=== PATIENT | female | born 1970 | race Caucasian/White ===

== ENCOUNTER 2024-08-31 12:35 | Observation (INO) ==
[~2024-08-31 12:35] MED LIST: ULTANE GAS IN ONE
--- NOTE | 2024-08-31 13:11 | ED.ABDFE ---
HPI Time Seen Time Seen by Provider: 08/31/24 13:10 PCP Primary Care Physician: Parris ELIZABETH Comment HPI Comment: Patient was recently seen in the emergency room due to abdominal pain. Patient was diagnosed with gallstones and states that she followed up with Dr. Spencer, the surgeon, and that they were planning possible surgery to remove her gallbladder and biopsy some lesions on her liver. Patient states the pain is in the right upper quadrant at this time and that it has worsened. Patient states she is also been having some nausea. She did not take any of her meds today. Patient states that she had coffee with creamer this morning around 9 in the morning and had some peppermints right before coming into the ER. Complaint Chief Complaint:: Patient states that she was here at this ER due to the same symptoms and was diagnosed with gallstones. She states that she has been having right lower quad abdominal pain still and has thrown up daily. She states that she tried to follow up with Dr. SPENCER and states that he was not able to schedule her at this time. Source History Provided: Patient Mode of arrival Mode of Arrival: Ambulatory Timing Onset of Chief Complaint: 08/12/24 PMH PMH Past Medical History: Yes Past Medical History: Diabetes, Dyslipidemia and Hypertension Surgical History: [employer] Surgery and Hysterectomy Family History History of Family Medical Conditions: Yes Family Medical History: Diabetes Mellitus, Cancer and Hypertension Social History Does patient currently use any type of tobacco product: Yes Have you used tobacco products in the last 12 months: Yes Type of Tobacco Use: Cigarettes Does any household member use tobacco: No Alcohol Use: None Do you use any recreational Drugs:: No Lives With: Family Lives Where: Home Infectious screening In the last 2 months have you had wt loss of >10#?: NO Have you had fever, night sweats or hemotysis?: No Have you traveled outside the country in the last 6 months?: No Isolation: Standard ROS Review of Systems Constitutional: No Symptoms Reported; negative Fever Eyes: No Symptoms Reported ENTM: No Symptoms Reported Respiratoy: No Symptoms Reported Cardiovascular: No Symptoms Reported Gastrointestinal/Abdominal: See HPI, Abdominal Pain and Nausea Genitourinary: No Symptoms Reported Neurological: No Symptoms Reported Musculoskeletal: No Symptoms Reported Integumentary: No Symptoms Reported Hematologic/Lymphatic: No Symptoms Reported Endocrine: No Symptoms Reported Psychiatric: No Symptoms Reported All Other Systems: Reviewed and Negative PE Vital Signs Vitals: Vital Signs Temperature 98.0 F Pulse Rate 91 Respiratory Rate 19 Respiratory Rate 18 Blood Pressure 187/80 O2 Sat by Pulse Oximetry 98 General Limitations: No Limitations and Language Barrier General Appearance: Alert and In No Apparent Distress Head Head Exam: Normal Inspection Eyes Eye exam: Normal Appearance ENT ENT Exam: Normal Exam Neck Neck Exam: Normal Inspection Chest Chest Inspection: Normal Inspection Respiratory Respiratory Exam: Normal Lung Sounds Bilat Cardiovascular Cardiovascular Exam: Regular Rate and Normal Rhythm Abdominal Exam Abdominal Exam: Normal Bowel Sounds, Soft and Tenderness (Right lower quadrant and epigastric mildly tender. No rebound.); negative Distention, Guarding, Rebound or Rigidity Abdominal Tenderness: RUQ Rectal Rectal Exam: Deferred Back Back Exam: Normal Inspection Extremeties Extremities Exam: Normal Inspection Neurologic Neurological Exam: Alert and Oriented X3 Psychiatric Psychiatric Exam: Normal Affect and Normal Mood Skin Skin Exam: Warm, Dry and Intact COURSE Consultation Called: 14:01 Consultation Comments: Discussed case with Dr. Childs. Dr. Spencer, the surgeon, who has seen Ms. Hogan before and requested that we admit her under Dr. Childs and consult him. Patient refused CT scan. Labs are still pending. However we discussed the case with Dr. Childs and he is agreeable to admit the patient. Patient is stable at this time. [facility] Labs Reviewed 08/31/24 13:13 08/31/24 13:13 Laboratory: WBC 12.0 X10^3/uL (3.6-10.0) H 08/31/24 13:13 RBC 5.66 X10^6/uL (3.5-5.4) H 08/31/24 13:13 Hgb 16.3 g/dL (12.0-16.0) H 08/31/24 13:13 Hct 47.4 % (36.0-47.0) H 08/31/24 13:13 MCV 83.8 fL (80.0-100.0) 08/31/24 13:13 MCH 28.7 pg (27.0-34.0) 08/31/24 13:13 MCHC 34.3 g/dL (33.0-35.0) 08/31/24 13:13 RDW 13.5 % (11.6-16.5) 08/31/24 13:13 Plt Count 259 X10^3/uL (150.0-450.0) 08/31/24 13:13 MPV 8.8 fL (7.4-11.0) 08/31/24 13:13 Neut % (Auto) 63.9 % (42.0-75.0) 08/31/24 13:13 Lymph % (Auto) 28.3 % (21.0-51.0) 08/31/24 13:13 [place] % (Auto) 5.7 % (0.0-13.0) 08/31/24 13:13 Eos % (Auto) 1.1 % (0.9-2.9) 08/31/24 13:13 Baso % (Auto) 1.0 % (0.2-1.0) 08/31/24 13:13 Neut # (Auto) 7.7 x10^3/uL (2.2-4.8) H 08/31/24 13:13 Lymph # (Auto) 3.4 X10^3/uL (1.3-2.9) H 08/31/24 13:13 [place] # (Auto) 0.7 x10^3/uL (0.3-0.8) 08/31/24 13:13 Eos # (Auto) 0.1 x10^3/uL (0.0-0.2) 08/31/24 13:13 Baso # (Auto) 0.1 X10^3/uL (0.0-0.1) 08/31/24 13:13 Absolute Nucleated RBC 0.1 /100WBC 08/31/24 13:13 Sodium 133 mmol/L (136-145) L 08/31/24 13:13 Corrected Sodium 135 mmol/L (136-145) L 08/31/24 13:13 Potassium 3.9 mmol/L (3.5-5.1) 08/31/24 13:13 Chloride 98 mmol/L (98-107) 08/31/24 13:13 Carbon Dioxide 31.4 mmol/L (21-32) 08/31/24 13:13 BUN 6 mg/dL (7-18) L 08/31/24 13:13 Creatinine 0.79 mg/dL (0.55-1.02) 08/31/24 13:13 Est GFR (MDRD) Af Amer > 60 (>60) 08/31/24 13:13 Est GFR (MDRD) Non-Af > 60 (>60) 08/31/24 13:13 Glucose 197 mg/dL (65-99) H 08/31/24 13:13 Calcium 8.9 mg/dL (8.5-10.1) 08/31/24 13:13 Corrected Calcium TNP 08/31/24 13:13 Total Bilirubin 0.50 mg/dL (0.2-1.0) 08/31/24 13:13 AST 36 Units/L (15-37) 08/31/24 13:13 ALT 28 Units/L (12-78) 08/31/24 13:13 Alkaline Phosphatase 185 Units/L (46-116) H 08/31/24 13:13 C-Reactive Protein 13.00 mg/L (0-3.0) H 08/31/24 13:13 Total Protein 7.8 g/dL (6.4-8.2) 08/31/24 13:13 Albumin 3.4 g/dL (3.4-5.0) 08/31/24 13:13 Globulin 4.4 g/dL (2.5-4.5) 08/31/24 13:13 Albumin/Globulin Ratio 0.8 Ratio (1.1-2.1) L 08/31/24 13:13 Opioid Opioid Risk Tool Age (Lamin box if 16-45): No History of Preadolescent Sexual Abuse: No Total: 0 Total Score Risk Category: Low Risk Copyright: Guilherme PATEL predicting aberrant behaviors Discharge Plan Diagnosis Discharge Problem: Abdominal pain Discharge Plan Patient Disposition: 09 ADMITTED INPATIENT Condition: Stable Prescriptions: No Action levocetirizine 5 mg tablet 5 mg PO QDAY Qty: 30 0RF ezetimibe 10 mg tablet 10 mg PO QDAY Health Concerns: Post Hospitalization: new medications and changes needed to prevent readmission or further decline. Pt educated and given instructions on all concerns. Plan of Treatment: Continue with present treatment and follow up plan. Pt is to keep follow up appointment as instructed and take medications as ordered. Orders to Discharge Patient Discharge Orders: Transfer (Routine); Ordered 08/31/24 Ordered By: Reinier Monroy Follow ups/Referrals Follow ups/Referrals: REN HE [Primary Care Provider] - 3 days Instructions Stand Alone Forms: Post Hospital Follow Up Care
[2024-08-31] MEDS: NS 500 ML IV 500 ML IV ONE (13:18)
[2024-08-31] MEDS: ZOFRAN INJ 4 MG VIAL IVP ONE (13:26)
[2024-08-31] MEDS: NORCO 5/325 MG TAB PO ONE (13:28)
[2024-08-31 13:37] LABS: BASOPHILS # (AUTO) 0.1 X10^3/uL (0.0-0.1); EOSINOPHILS # (AUTO) 0.1 x10^3/uL (0.0-0.2); EOSINOPHILS % (AUTO) 1.1 % (0.9-2.9); HEMATOCRIT 47.4 % (36.0-47.0); HEMOGLOBIN 16.3 g/dL (12.0-16.0); LYMPHOCYTES # (AUTO) 3.4 X10^3/uL (1.3-2.9); LYMPHOCYTES % (AUTO) 28.3 % (21.0-51.0); MEAN CORPUSCULAR HEMOGLOBIN 28.7 pg (27.0-34.0); MEAN CORPUSCULAR HGB CONC 34.3 g/dL (33.0-35.0); MEAN CORPUSCULAR VOLUME 83.8 fL (80.0-100.0); MEAN PLATELET VOLUME 8.8 fL (7.4-11.0); MONOCYTES # (AUTO) 0.7 x10^3/uL (0.3-0.8); MONOCYTES % (AUTO) 5.7 % (0.0-13.0); NEUTROPHILS # (AUTO) 7.7 x10^3/uL (2.2-4.8); NEUTROPHILS % (AUTO) 63.9 % (42.0-75.0); PLATELET COUNT 259 X10^3/uL (150.0-450.0); RED BLOOD COUNT 5.66 X10^6/uL (3.5-5.4); RED CELL DISTRIBUTION WIDTH 13.5 % (11.6-16.5)
[2024-08-31 13:58] LABS: ALANINE AMINOTRANSFERASE 28 Units/L (12-78); ALBUMIN 3.4 g/dL (3.4-5.0); ALKALINE PHOSPHATASE 185 Units/L (46-116); ASPARTATE AMINO TRANSFERASE 36 Units/L (15-37); BLOOD UREA NITROGEN 6 mg/dL (7-18); CALCIUM 8.9 mg/dL (8.5-10.1); CARBON DIOXIDE 31.4 mmol/L (21-32); CHLORIDE 98 mmol/L (98-107); COR NA(FOR HYPERGLY) 135 mmol/L (136-145); CREATININE 0.79 mg/dL (0.55-1.02); GLUCOSE 197 mg/dL (65-99); POTASSIUM 3.9 mmol/L (3.5-5.1); SODIUM 133 mmol/L (136-145); TOTAL PROTEIN 7.8 g/dL (6.4-8.2); eGFR NON BLACK RACES > 60 (>60)
[2024-08-31 14:06] LABS: AMYLASE 51 Units/L (25-115); LIPASE 92 Units/L (16-77)
[2024-08-31] MEDS ORDERED: NovoLIN R (or HumuLIN R) SUBCUT PRN (14:55)
[2024-08-31 15:45] VITALS: BMI 22.7
[2024-08-31] MEDS: NS 1,000 ML IV 1,000 ML IV SCH (16:01)
[2024-08-31] MEDS: MAG-OX TAB PO SCH (17:27)
[2024-08-31] MEDS: LEVAQUIN PREMIX IV 500 MG 500 MG/100 ML BAG IV ONE (18:15)
[2024-08-31 18:16] LABS: BILIRUBIN,URINE NEGATIVE (NEGATIVE); BLOOD/HEMOGLOBIN,URINE NEGATIVE (NEGATIVE); GLUCOSE, URINE NEGATIVE (NEGATIVE); KETONES,URINE NEGATIVE (NEGATIVE); LEUKOCYTE ESTERASE ,URINE NEGATIVE (NEGATIVE); NITRITES,URINE NEGATIVE (NEGATIVE); PROTEIN,URINE NEGATIVE (NEGATIVE); UROBILINOGEN,URINE NORMAL (NORMAL)
[2024-08-31 18:23] LABS: APPEARANCE,URINE CLEAR (CLEAR); COLOR,URINE YELLOW (YELLOW)
[2024-08-31] MEDS: ZOFRAN INJ 4 MG VIAL ONE (18:29)
[2024-08-31] MEDS: CONSULT PHARMACY - POTASSIUM & MAGNESIUM XX SCH ×2 (18:29)
[2024-08-31] MEDS: NORCO 5/325 MG TAB ONE (18:30)
[2024-08-31] MEDS: SNACK - Diabetic Appropriate PO SCH (19:05)
[2024-08-31] MEDS: NORCO 5/325 MG TAB PO PRN (20:30)
[2024-09-01] MEDS: HIBICLENS WASH EXT ONE (01:25)
[2024-09-01] MEDS: HIBICLENS WASH ONE (04:01)
[2024-09-01 04:53] LABS: BASOPHILS # (AUTO) 0.1 X10^3/uL (0.0-0.1); BASOPHILS % (AUTO) 0.6 % (0.2-1.0); EOSINOPHILS # (AUTO) 0.1 x10^3/uL (0.0-0.2); EOSINOPHILS % (AUTO) 1.1 % (0.9-2.9); HEMATOCRIT 43.6 % (36.0-47.0); HEMOGLOBIN 14.9 g/dL (12.0-16.0); LYMPHOCYTES # (AUTO) 3.8 X10^3/uL (1.3-2.9); LYMPHOCYTES % (AUTO) 39.2 % (21.0-51.0); MEAN CORPUSCULAR HEMOGLOBIN 28.6 pg (27.0-34.0); MEAN CORPUSCULAR HGB CONC 34.2 g/dL (33.0-35.0); MEAN CORPUSCULAR VOLUME 83.7 fL (80.0-100.0); MEAN PLATELET VOLUME 8.6 fL (7.4-11.0); MONOCYTES # (AUTO) 0.7 x10^3/uL (0.3-0.8); MONOCYTES % (AUTO) 6.9 % (0.0-13.0); NEUTROPHILS % (AUTO) 52.2 % (42.0-75.0); PLATELET COUNT 236 X10^3/uL (150.0-450.0); RED BLOOD COUNT 5.21 X10^6/uL (3.5-5.4); RED CELL DISTRIBUTION WIDTH 13.4 % (11.6-16.5); WHITE BLOOD COUNT 9.6 X10^3/uL (3.6-10.0)
[2024-09-01 05:09] LABS: ALANINE AMINOTRANSFERASE 24 Units/L (12-78); ALBUMIN 2.9 g/dL (3.4-5.0); ALKALINE PHOSPHATASE 162 Units/L (46-116); ASPARTATE AMINO TRANSFERASE 29 Units/L (15-37); BLOOD UREA NITROGEN 3 mg/dL (7-18); CALCIUM 8.7 mg/dL (8.5-10.1); CARBON DIOXIDE 34.1 mmol/L (21-32); CHLORIDE 102 mmol/L (98-107); COR CA(FOR HYPOALB) 9.6 mg/dL (8.5-10.1); COR NA(FOR HYPERGLY) 137 mmol/L (136-145); CREATININE 0.77 mg/dL (0.55-1.02); GLUCOSE 112 mg/dL (65-99); POTASSIUM 4.4 mmol/L (3.5-5.1); SODIUM 137 mmol/L (136-145); eGFR NON BLACK RACES > 60 (>60)
[2024-09-01] MEDS: NOZIN NASAL SANITIZER TP SCH (08:08)
[2024-09-01] MEDS: VERSED ONE (08:13)
[2024-09-01] MEDS: FENTANYL VIAL INJ 100 mcg ONE ×2 (08:13→10:11)
[2024-09-01] MEDS: REGLAN INJ 10 MG VIAL ONE (08:14)
[2024-09-01] MEDS: ZOFRAN INJ 4 MG VIAL ONE (08:14)
[2024-09-01] MEDS: TORADOL 30 MG VIAL ONE (08:14)
[2024-09-01] MEDS: OFIRMEV IV 1000 MG VIAL 1,000 MG/100 ML VIAL IV ONE (08:14)
[2024-09-01] MEDS: ZEMURON 100 MG VIAL ONE (08:14)
[2024-09-01] MEDS: DIPRIVAN VIAL 20 ML ONE (08:14)
[2024-09-01] MEDS: PEPCID 20 MG VIAL ONE (08:14)
[2024-09-01] MEDS: BRIDION ONE (08:14)
[2024-09-01] MEDS: BACTROBAN TOPICAL OINT ONE (09:15)
[2024-09-01] MEDS: NS 100 ML IV 100 ML ONE (09:18)
[2024-09-01] MEDS: NOZIN NASAL SANITIZER TP ONE (09:18)
[2024-09-01] MEDS: ANCEF VIAL 1 GRAM ONE (09:18)
[2024-09-01] MEDS: LR 1,000 ML IV 0 ML IV ONE (09:19)
[2024-09-01] MEDS: NS 1,000 ML IV 1,000 ML ONE (09:19)
[2024-09-01] MEDS: DUONEB 0.5 MG/3 MG (3 mL) NEB ONE (09:22)
[2024-09-01] MEDS ORDERED: MAGNESIUM SULFATE 1 GRAM/100 mL PREMIX 1 G/100 ML BAG IV SCH (09:31)
[2024-09-01] MEDS ORDERED: ZOFRAN INJ 4 MG VIAL IVP PRN (09:36)
[2024-09-01] MEDS ORDERED: DILAUDID INJ IVP PRN (09:36)
[2024-09-01] MEDS ORDERED: REGLAN INJ 10 MG VIAL IVP PRN (09:36)
[2024-09-01] MEDS ORDERED: BARHEMSYS INJ IVP PRN (09:36)
[2024-09-01] MEDS ORDERED: BENADRYL INJ 50 MG VIAL IVP PRN (09:36)
[2024-09-01] MEDS: DILAUDID INJ ONE (10:45)
[2024-09-01] MEDS: NS 1,000 ML IV 1,000 ML with MAGNESIUM SULFATE 50% INJ VIAL 1 G IV SCH (12:14)
[2024-09-01] MEDS: BENADRYL INJ 50 MG VIAL IVP PRN (12:39)
[2024-09-01] MEDS: DILAUDID INJ IVP PRN (12:42)
[2024-09-01] MEDS: NICOTINE PATCH TD SCH (20:12)
[2024-09-02 06:24] LABS: BASOPHILS # (AUTO) 0.1 X10^3/uL (0.0-0.1); BASOPHILS % (AUTO) 0.7 % (0.2-1.0); EOSINOPHILS # (AUTO) 0.1 x10^3/uL (0.0-0.2); EOSINOPHILS % (AUTO) 0.5 % (0.9-2.9); HEMATOCRIT 39.6 % (36.0-47.0); HEMOGLOBIN 13.2 g/dL (12.0-16.0); LYMPHOCYTES # (AUTO) 3.2 X10^3/uL (1.3-2.9); LYMPHOCYTES % (AUTO) 26.8 % (21.0-51.0); MEAN CORPUSCULAR HEMOGLOBIN 28.7 pg (27.0-34.0); MEAN CORPUSCULAR HGB CONC 33.5 g/dL (33.0-35.0); MEAN CORPUSCULAR VOLUME 85.6 fL (80.0-100.0); MEAN PLATELET VOLUME 8.5 fL (7.4-11.0); MONOCYTES # (AUTO) 0.7 x10^3/uL (0.3-0.8); MONOCYTES % (AUTO) 5.9 % (0.0-13.0); NEUTROPHILS # (AUTO) 7.9 x10^3/uL (2.2-4.8); NEUTROPHILS % (AUTO) 66.1 % (42.0-75.0); PLATELET COUNT 199 X10^3/uL (150.0-450.0); RED BLOOD COUNT 4.62 X10^6/uL (3.5-5.4); RED CELL DISTRIBUTION WIDTH 13.2 % (11.6-16.5); WHITE BLOOD COUNT 11.9 X10^3/uL (3.6-10.0)
[2024-09-02 06:37] LABS: ALANINE AMINOTRANSFERASE 40 Units/L (12-78); ALBUMIN 2.7 g/dL (3.4-5.0); ALKALINE PHOSPHATASE 164 Units/L (46-116); ASPARTATE AMINO TRANSFERASE 50 Units/L (15-37); BLOOD UREA NITROGEN 5 mg/dL (7-18); CARBON DIOXIDE 29.8 mmol/L (21-32); CHLORIDE 103 mmol/L (98-107); COR NA(FOR HYPERGLY) 138 mmol/L (136-145); CREATININE 0.82 mg/dL (0.55-1.02); GLUCOSE 164 mg/dL (65-99); MAGNESIUM 2.1 mg/dL (2.0-2.9); POTASSIUM 3.9 mmol/L (3.5-5.1); SODIUM 136 mmol/L (136-145); TOTAL PROTEIN 6.5 g/dL (6.4-8.2); eGFR NON BLACK RACES > 60 (>60)
--- NOTE | 2024-09-02 06:42 | RAD ---
EXAM:AP chestHISTORY:Preop cholelithiasisCOMPARISON:NoneFINDINGS:Th e heart is normal in size with clear lungs and pleural spaces. The right hilar complex is prominent and slightly indistinct. No mediastinal or pleural lesion is noted.IMPRESSION:Probably normal, see above. The described appearance of the right hilum may be related to nonstandard AP projection. Suggest standard PA and lateral views of the chest to confirm normal findings.THIS IS AN ELECTRONICALLY VERIFIED FINAL [id number] 6:38 AM - Electronically signed by Silvestre Ureña MD
[2024-09-02 11:19] VITALS: BP 175/77; PULSE 94; RESP 19; TEMP 97.5; O2SAT 95
== END 2024-09-02 13:05 | disposition home or self-care (01) ==
LOC: ER 12:35 → MED/SURG 12:35
PROVIDERS: ADMIT Obstetrics & Gynecology Obstetrics; ATTEND Obstetrics & Gynecology Obstetrics